=== PATIENT | male | born 1945 | race African-American/Black ===

== ENCOUNTER 2020-11-24 21:21 | Emergency (ER) | payer OTHER ==
[~2020-11-24] VITALS: Ht 167.6 cm; Wt 65.8 kg
--- NOTE | 2020-11-24 23:10 | NUR ---
Pt BIB [facility] from home for AMS and fever. Pt tested COVID + 4 days ago. Febrile. A/O x2, no SOB or labored breathing. Calm and cooperative. Clear speech, complete sentences.
--- NOTE | 2020-11-24 23:10 | NUR ---
Note beckyone in EDM - 11/25/20 at 0650 by STEPHANIE Pt BIB [facility] from home for AMS and fever. Pt tested COVID + on sunday. Febrile. A/O x2, no SOB or labored breathing. Calm and cooperative. Clear speech, complete sentences.
--- NOTE | 2020-11-24 23:11 | NUR ---
Dr. Nieto at bedside, MSE in progress.
[2020-11-24 23:23] LABS: ABG BASE EXCESS 4.5 mmol/L; ABG HCO3 25.5 mmol/L; ABG PCO2 26.4 mmHg (35.0-45.0); ABG PH 7.603 (7.350-7.450); ABG PO2 138.7 mmHg (75.0-100.0); ABG SITE RIGHT RADIAL; ABG TOTAL HEMOGLOBIN 10.2 G/dL (13.5-18.0); COHb 1.2 % (0.5-1.5); MetHb 0.3 % (0.0-1.5); O2Hb 97.4 % (94.0-97.0)
[2020-11-24 23:41] LABS: HEMATOCRIT 28.6 % (36.7-47.1); MEAN CORPUSCULAR HEMOGLOBIN 30.3 uug (23.8-33.4); MEAN CORPUSCULAR VOLUME 89.3 fL (73.0-96.2); PLATELET COUNT (AUTO) 54 K/uL (152-348)
[2020-11-24] MEDS ORDERED: FOLI1TAB94 PO (23:51)
[2020-11-24] MEDS ORDERED: CARV25TA2 PO (23:51)
[2020-11-24] MEDS ORDERED: APIX5TAB4 PO (23:51)
[2020-11-24] MEDS ORDERED: ROSU20TA2 PO (23:51)
[2020-11-24] MEDS ORDERED: LAMO150T6 PO (23:51)
[2020-11-24] MEDS ORDERED: PRED2.5T PO (23:51)
[2020-11-24] MEDS ORDERED: SERT50TA PO (23:51)
[2020-11-24] MEDS ORDERED: TAMS-3 PO (23:51)
[2020-11-24] MEDS ORDERED: FAMO20TA8 PO (23:51)
[2020-11-24] MEDS ORDERED: PATI8.4P PO (23:51)
[2020-11-24] MEDS ORDERED: SACU1TAB7 PO (23:51)
[2020-11-25 00:04] LABS: CARBON DIOXIDE 25 mmol/L (21-32); CHLORIDE 100 mmol/L (98-107); CREATININE 1.9 mg/dL (0.6-1.3); GLUCOSE 159 mg/dL (74-106); POTASSIUM 4.3 mmol/L (3.5-5.1); UREA NITROGEN, BLOOD 45 mg/dL (7-18)
[2020-11-25 00:05] LABS: CREATINE KINASE, TOTAL 143 U/L (39-308)
--- NOTE | 2020-11-25 00:30 | NUR ---
Taken down for CT.
--- NOTE | 2020-11-25 00:37 | NUR ---
Pt returned from CT, stable condition.
[2020-11-25 00:52] LABS: ALANINE AMINOTRANSFERASE 15 U/L (16-63); ALKALINE PHOSPHATASE 36 U/L (50-136); ASPARTATE AMINOTRANSFERASE 19 U/L (15-37); BILIRUBIN,TOTAL 0.8 mg/dL (0.2-1.0); FERRITIN 1653 ng/mL (26-388); LACTATE DEHYDROGENASE 156 U/L (85-227); TOTAL PROTEIN, SERUM 5.7 g/dL (6.4-8.2)
[2020-11-25 00:54] LABS: BAND % (MANUAL) 1 % (0-10); LYMPHOCYTES % (MANUAL) 14 % (20-40); MONOCYTES % (MANUAL) 4 % (2-10); NEUTROPHILS % (MANUAL) 81 % (42-75)
[2020-11-25] MEDS ORDERED: AZITHROMYCIN IV 500 MG in IV DEXTROSE 5% 250 ML IV ONE (02:30)
[2020-11-25] MEDS ORDERED: CEFTRIAXONE 1 G in IV DEXTROSE 5% 50 ML IV ONE (02:30)
[2020-11-25] MEDS ORDERED: CEFTRIAXONE /D5W 50ML IVPB **ER PYXIS IV ONE (02:36)
[2020-11-25] MEDS ORDERED: AZITHROMYCIN 500MG/ D5W 250ML IVPB **ER PYXIS ONLY IV ONE (02:36)
--- NOTE | 2020-11-25 03:02 | NUR ---
Patient is resting comfortably in bed with eyes closed. VSS. No SOB, breathing even and unlabored.
--- NOTE | 2020-11-25 05:11 | NUR ---
VSS. Breathing eval and unlabored. Resting comfortably in bed, eyes closed. Bed in lowest position for safety precautions.
--- NOTE | 2020-11-25 06:44 | NUR ---
[facility] [place] [employer] case records supervisor called stated pt has been accepted to [facility]. Going to room 847 bed 2, # to give report [phone]. [facility] arranged ETA is 8AM. energy and sustainability manager # [phone].
--- NOTE | 2020-11-25 06:47 | NUR ---
Pt being accepted by Dr. Vu in [facility].
--- NOTE | 2020-11-25 07:02 | NUR ---
Pt now going to room 849 bed 2, with nurse Yessy.
--- NOTE | 2020-11-25 07:40 | NUR ---
Spoke to Pt's son Alejandro, made aware of transfer, consent given by son for transfer. Pt is resting w/ both eyes closed, NAD noted.
--- NOTE | 2020-11-25 08:00 | NUR ---
Report given to Yessy CRUZ at [facility].
--- NOTE | 2020-11-25 08:37 | NUR ---
Report given to transfering city recorder. Pt left ER via gurney, all belongings sent w/ pt.
== END 2020-11-25 08:39 | disposition short-term general hospital (02) ==
LOC: ER 21:29
DX: U07.1 COVID-19 (principal); J12.82 Pneumonia due to coronavirus disease 2019; R41.82 Altered mental status, unspecified; D69.6 Thrombocytopenia, unspecified; Z86.718 Personal history of other venous thrombosis and embolism; Z79.01 Long term (current) use of anticoagulants; R09.02 Hypoxemia; N28.9 Disorder of kidney and ureter, unspecified; R73.9 Hyperglycemia, unspecified; R94.31 Abnormal electrocardiogram [ECG] [EKG]; Z79.899 Other long term (current) drug therapy; D64.9 Anemia, unspecified; R79.1 Abnormal coagulation profile; I44.7 Left bundle-branch block, unspecified; Z86.73 Personal history of transient ischemic attack (TIA), and cerebral infarction without residual deficits
CPT/HCPCS: 36415; 36600; 70450; 71045; 80053; 82550; 82728; 83605; 83615; 83880; 84145; 84484; 85007; 85025; 85379; 85385; 85730; 86140; 87040 ×2; 87400; 87426; 93005; 96365; 96368; 99291; J0456; J0696; U0003; 70030-TC